=== PATIENT | female | born 1955 | race Caucasian/White ===

== ENCOUNTER → 2024-06-23 11:38 | Outpatient (CLI) | payer MEDICARE, SELFPAY ==
[2024-06-23 12:41] LABS: Add Manual Diff / Slide Review NO; Basophils Absolute Auto 100 /uL (0-100); Basophils Percent Auto 1.8 % (0-2); Eosinophils Absolute Auto 200 /uL (0-450); Hematocrit 34.4 % (36-46); Hemoglobin 11.2 g/dL (12.0-16.0); Lymphocytes Absolute Auto 1300 /uL (1100-4500); Lymphocytes Percent Auto 35.8 % (25-40); Mean Corpuscular HGB Conc 32.4 % (30-36); Mean Corpuscular Hemoglobin 27.3 PG (26-34); Mean Corpuscular Volume 84.1 fL (80-100); Monocytes Absolute Auto 300 /uL (0-900); Monocytes Percent Auto 6.8 % (3-14); Neutrophils Absolute Auto 1900 /uL (1500-7000); Neutrophils Percent Auto 49.6 % (50-75); Platelet Count 278 X10^3/uL (150-400); Red Blood Cell Count 4.09 X10^6/uL (4.0-5.2); Red Cell Distribution Width 16.6 % (11.6-14.8); White Blood Cell Count 3.8 X10^3/uL (4.5-11.0)
[2024-06-23 12:56] LABS: Alanine Aminotransferase 18 IU/L (<35); Albumin 4.3 g/dL (3.5-5.0); Albumin Globulin Ratio 1.5 (1.0-2.8); Alkaline Phosphatase 67 U/L (38-126); Aspartate Aminotransferase 27 IU/L (14-36); BUN Creatinine Ratio 14.6 (6-22); Blood Urea Nitrogen 12 mg/dL (7-17); Calcium 9.3 mg/dL (8.4-10.2); Carbon Dioxide 22 mmol/L (22-32); Chloride 107 mmol/L (98-107); Cholesterol 231 mg/dL (140-199); Estimated Glomerular Filt Rate > 60 mL/min (>60); Globulin 2.9 g/dL (1.7-4.1); Glucose 96 mg/dL (80-110); HEMOLYSIS < 15 (0-50); Potassium 4.2 mmol/L (3.4-5.1); Sodium 139 mmol/L (137-145); Total Protein 7.2 g/dL (6.3-8.2); Triglycerides 78 mg/dL (35-150)
[2024-06-23 13:31] LABS: TSH w/ Reflex to FT4 1.14 uIU/mL (0.47-4.68)
[2024-06-23 13:47] LABS: HDL Cholesterol 105 mg/dL (40-60); LDL Cholesterol Calculated 110 mg/dL (<100)
== END ==
PROVIDERS: PCP Family Medicine; Referring Provider Family Medicine; Visit Provider Family Medicine
DX: Z00.00 Encounter for general adult medical examination without abnormal findings (principal); I10 Essential (primary) hypertension; G47.00 Insomnia, unspecified
CPT/HCPCS: 36415; 80053; 80061; 84443; 85025

== ENCOUNTER → 2024-07-23 11:21 | Outpatient (CLI) | payer MEDICARE, SELFPAY ==
--- NOTE | 2024-07-23 11:22 | DI.MG.S_ITS ---
BILATERAL DIGITAL SCREENING MAMMOGRAM 3D/2D WITH CAD: 07/23/2024 CLINICAL: Routine screening. Family history of breast cancer. Comparison is made to exams dated: 12/21/2022 mammogram, 12/11/2019 mammogram, and 10/27/2018 mammogram - [facility]. There are scattered areas of fibroglandular density (category b / 25%-50% glandular tissue). Current study was also evaluated with a Computer Aided Detection (CAD) system. No significant masses, calcifications, or other findings are seen in either breast. There has been no significant interval change. IMPRESSION: NEGATIVE There is no mammographic evidence of malignancy. A 1 year screening mammogram is recommended. Based on the Tyrer Cuzick model (a risk assessment model) the patient's lifetime risk is 7.6% and her 10 year risk is 3.8%. According to the ACR, ACS, and NCCN guidelines, an annual breast MRI exam along with mammogram is recommended if the patient's lifetime risk is 20% or greater. This exam was interpreted at Station ID: [id number]. NOTE: For mammograms, a report in lay terms will be sent to the patient. Approximately 15% of breast malignancies will not be visualized mammographically. In the management of a palpable breast mass, a negative mammogram must not discourage biopsy of a clinically suspicious lesion. Electronically Signed By: Luisa Lucio M.D., Ph.D. den/elizabet:07/24/2024 10:16:25 letter sent: Normal Exam ACR BI-RADS Category 1: Negative
== END ==
PROVIDERS: PCP Family Medicine; Referring Provider Family Medicine; Visit Provider Family Medicine
DX: Z12.31 Encounter for screening mammogram for malignant neoplasm of breast (principal); Z80.3 Family history of malignant neoplasm of breast
CPT/HCPCS: 77063; 77067

== ENCOUNTER → 2024-09-28 13:48 | Outpatient (CLI) | payer MEDICARE, SELFPAY ==
[2024-09-28 15:13] LABS: Adenovirus Not Detected (Not Detect); B. parapertussis Not Detected (Not Detecte); Bordetella pertussis Not Detected (Not Detect); Chlamydophila pneumoniae Not Detected (Not Detect); Coronavirus 229E Not Detected (Not Detect); Coronavirus HKU1 Not Detected (Not Detect); Coronavirus NL 63 Not Detected (Not Detect); Coronavirus OC43 Not Detected (Not Detect); Human Metapneumovirus Not Detected (Not Detect); Human Rhinovirus/Enterovirus Not Detected (Not Detect); Influenza A Not Detected (Not Detect); Influenza B Not Detected (Not Detect); Mycoplasma pneumoniae Not Detected (Not Detect); Parainfluenza Virus 1 Not Detected (Not Detect); Parainfluenza Virus 2 Not Detected (Not Detect); Parainfluenza Virus 3 Not Detected (Not Detect); Parainfluenza Virus 4 Not Detected (Not Detect); Respiratory Syncytial Virus Not Detected (Not Detect); SARS- CoV-2 Not Detected (Not Detecte)
== END ==
PROVIDERS: PCP Family Medicine; Visit Provider Nurse Practitioner Family
DX: R05.1 Acute cough (principal)
CPT/HCPCS: 87633

== ENCOUNTER → 2024-09-28 13:53 | Outpatient (CLI) | payer MEDICARE, SELFPAY ==
--- NOTE | 2024-09-28 13:54 | DI.RAD.S_ITS ---
PROCEDURE: XR CHEST 2V INDICATIONS: Cough TECHNIQUE: 2 views of the chest were acquired. COMPARISON: None. FINDINGS: Surgical changes and devices: None. Lungs and pleura: Retrocardiac opacity, seen only on the lateral view. Mediastinum: Mediastinal contours are normal. Heart size is normal. Bones and chest wall: No suspicious bony abnormalities. Soft tissues appear unremarkable. IMPRESSION: Retrocardiac consolidation, concerning for pneumonia. Recommend follow-up in 1-2 months with chest x-ray to ensure resolution. Dictated by: Wicho Mcdowell M.D. on 09/28/2024 at 14:25 Approved by: Wicho Mcdowell M.D. on 09/28/2024 at 14:26
== END ==
PROVIDERS: PCP Family Medicine; Referring Provider Nurse Practitioner Family; Visit Provider Nurse Practitioner Family
DX: R05.1 Acute cough (principal)
CPT/HCPCS: 71046; 87633

== ENCOUNTER 2024-10-20 15:21 | Observation (INO) | payer MEDICARE, SELFPAY ==
[2024-10-20] VITALS (11 sets, daily range): BP systolic 125–187; BP diastolic 73–103; PULSE 92–107; RESP 16–22; TEMP 36.4; O2SAT 94–97; BMI 34.3
--- NOTE | 2024-10-20 15:30 | EKG_ITS ---
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
--- NOTE | 2024-10-20 15:30 | DI.RAD.S_ITS ---
PROCEDURE: XR CHEST 2V INDICATIONS: shortness of breath/cough TECHNIQUE: 2 views of the chest were acquired. COMPARISON: [facility], , XR CHEST 2V, 09/28/2024, 13:50. FINDINGS: Surgical changes and devices: None. Lungs and pleura: Multifocal pulmonary opacities are seen including in the right upper lobe and left lower lobe suspicious for bilateral pneumonia. No pleural effusion or pneumothorax. Mediastinum: Mediastinal contours are normal. Heart size is normal. Bones and chest wall: No suspicious bony abnormalities. Soft tissues appear unremarkable. IMPRESSION: Bilateral consolidations are suspicious for pneumonia. Left basilar consolidation has increased when compared to the exam from 09/28/2024 and right upper lobe consolidation is new. Approved by: Dewayne Long M.D. on 10/20/2024 at 16:01
[2024-10-20 15:58] LABS: Add Manual Diff / Slide Review NO; Basophils Absolute Auto 100 /uL (0-100); Basophils Percent Auto 1.1 % (0-2); Eosinophils Absolute Auto 400 /uL (0-450); Eosinophils Percent Auto 4.1 % (2-4); Hematocrit 33.6 % (36-46); Hemoglobin 10.6 g/dL (12.0-16.0); Lymphocytes Absolute Auto 900 /uL (1100-4500); Lymphocytes Percent Auto 10.9 % (25-40); Mean Corpuscular HGB Conc 31.6 % (30-36); Mean Corpuscular Hemoglobin 26.5 PG (26-34); Mean Corpuscular Volume 83.7 fL (80-100); Monocytes Absolute Auto 500 /uL (0-900); Monocytes Percent Auto 5.5 % (3-14); Neutrophils Absolute Auto 6700 /uL (1500-7000); Neutrophils Percent Auto 78.4 % (50-75); Platelet Count 586 X10^3/uL (150-400); Red Blood Cell Count 4.02 X10^6/uL (4.0-5.2); Red Cell Distribution Width 16.6 % (11.6-14.8); White Blood Cell Count 8.6 X10^3/uL (4.5-11.0)
[2024-10-20 16:11] LABS: HEMOLYSIS < 15 (0-50)
[2024-10-20 16:12] LABS: INR 1.2 (0.9-1.3); Prothrombin Time 13.1 SECONDS (9.4-12.5)
[2024-10-20 16:14] LABS: Lactate (Lactic Acid) 1.2 mmol/L (0.7-2.1)
[2024-10-20 16:15] LABS: Alanine Aminotransferase 24 IU/L (<35); Albumin 3.7 g/dL (3.5-5.0); Albumin Globulin Ratio 1.1 (1.0-2.8); Alkaline Phosphatase 95 U/L (38-126); Aspartate Aminotransferase 27 IU/L (14-36); Bilirubin Total 0.4 mg/dL (0.2-1.3); Blood Urea Nitrogen 12 mg/dL (7-17); Calcium 8.9 mg/dL (8.4-10.2); Carbon Dioxide 20 mmol/L (22-32); Chloride 107 mmol/L (98-107); Estimated Glomerular Filt Rate > 60 mL/min (>60); Globulin 3.4 g/dL (1.7-4.1); Glucose 107 mg/dL (80-110); Potassium 4.1 mmol/L (3.4-5.1); Sodium 137 mmol/L (137-145); Total Protein 7.1 g/dL (6.3-8.2)
[2024-10-20 16:27] LABS: Troponin I < 0.012 ng/mL (0.01-0.034)
[2024-10-20 17:45] LABS: NT-proBNP (BNP-Adult 18+) 186 pg/mL (<125)
--- NOTE | 2024-10-20 18:02 | ED.SOB ---
HPI - SOB/Dyspnea General Chief Complaint: Shortness of Breath/Dyspnea Stated Complaint: hx pneumonia. short of breath Time Seen by Provider: 10/20/24 17:57 Source: patient Mode of arrival: Ambulatory Limitations: no limitations History of Present Illness HPI Narrative: 68-year-old female with history of hypertension presents by private vehicle from home for shortness of breath. Patient has been under treatment for pneumonia since the 28 of September. She has been on Augmentin, azithromycin, and Keflex without improvement. Patient states that she feels rattling in her lungs when she lays down. Intermittent fevers at home. Related Data Home Medications Medication Instructions Recorded Confirmed atenolol 50 mg tablet 50 mg PO DAILY 06/23/24 10/20/24 Previous Rx's Medication Instructions Recorded trazodone 50 mg tablet 50 mg PO BEDTIME #90 tabs 06/23/24 valacyclovir 500 mg tablet 500 mg PO BID PRN cold sore #20 09/22/24 tabs benzonatate 200 mg capsule 200 mg PO BID PRN cough #28 caps 09/28/24 albuterol sulfate 90 mcg/actuation 2 puff inhalation Q6H PRN 10/14/24 aerosol inhaler shortness of breath or wheezing #6.7 grams Allergies Allergy/AdvReac Type Severity Reaction Status Date / Time No Known Drug Allergies Allergy Unverified 09/28/24 13:32 Patient History Medical History Pneumonia Anemia Retinal vein occlusion of right eye Sleep apnea (~2018) Mumps Measles Chicken pox History of colon polyps Preventative health care Insomnia Hypertension Surgical History Anesthesia History of surgical removal of pilonidal cyst (~1977) Family History Father History of heart disease Mother Diabetes mellitus Dementia Mental health problem Brother Vascular dementia Alzheimer's disease Hypertension Mental health problem Sister Mental health problem Anxiety Grandfather Cancer Grandmother Dementia Grandfather History of heart disease Grandmother Breast cancer Social History household members: spouse Smoking Status: Never smoker Smoking Status: Never smoker Exam Initial Vital Signs Initial Vital Signs: Vital Signs Temperature 97.5 F L 10/20/24 15:24 Pulse Rate 94 H 10/20/24 15:24 Respiratory Rate 20 10/20/24 15:24 Blood Pressure 187/103 H 10/20/24 15:24 Pulse Oximetry 94 10/20/24 15:24 Oxygen Delivery Method Room Air 10/20/24 15:24 Const: Awake, alert, no acute distress, nontoxic appearing Cardiac: regular rate, regular rhythm RESP: bibasilar crackles GI: Soft, nontender, nondistended Skin: Warm, Dry, intact, no rashes Neuro: AO x3, CN II-XII grossly intact, moves all extremities Course Orders Ordered: ED Orders 10/20/24 19:04 CT chest w con Stat Acetaminophen (Acetaminophen 325 Mg Tablet) 650 mg PO Q6H PRN PRN Reason: Fever/Mild Pain (1-3) Albuterol (Albuterol 2.5 Mg/3 Ml Neb (Adult)) 2.5 mg INH [id number] PRN PRN Reason: Shortness Of Breath Benzonatate (Benzonatate 100 Mg Capsule) 200 mg PO TID PRN PRN Reason: cough Enoxaparin Sodium (Enoxaparin 40 Mg/0.4 Ml Syringe) 40 mg SUBCUT DAILY SOCORRO Ceftriaxone Sodium 1,000 mg/ (Sodium Chloride) 100 mls @ 200 mls/hr IV Q24H SOC[place]RO Azithromycin 500 mg/ Dextrose 250 mls @ 250 mls/hr IV Q24H SOCORRO Naloxone HCl (Naloxone 0.4 Mg/Ml Vial) 0.2 mg IV Q2MIN PRN PRN Reason: Opiate Reversal Sennosides (Sennosides 8.6 Mg Tablet) 17.2 mg PO BEDTIME PRN PRN Reason: constipation Trazodone HCl (Trazodone 50 Mg Tablet) 50 mg PO BEDTIME PRN PRN Reason: insomnia Discontinued Medications Ceftriaxone Sodium 2,000 mg/ (Sodium Chloride) 100 mls @ 200 mls/hr IV NOW ONE Stop: 10/20/24 19:13 Last Infusion: 10/20/24 20:10 Dose: Infused Documented By: Admin: 10/20/24 19:36 Dose: 200 mls/hr Documented By: Azithromycin 500 mg/ Dextrose 250 mls @ 250 mls/hr IV NOW ONE Stop: 10/20/24 19:13 Last Infusion: 10/20/24 21:47 Dose: Infused Documented By: Admin: 10/20/24 20:17 Dose: 250 mls/hr Documented By: AB Vital Signs Vital signs: Vital Signs - 8 hr 10/20/24 19:00 10/20/24 19:00 10/20/24 19:35 Pulse Rate 99 H 105 H Respiratory Rate 22 Blood Pressure 148/84 H Pulse Oximetry 96 10/20/24 19:36 10/20/24 19:36 10/20/24 20:00 Pulse Rate 99 H Respiratory Rate 16 Blood Pressure 147/84 H 147/84 H Pulse Oximetry 96 10/20/24 20:00 10/20/24 20:30 10/20/24 20:30 Pulse Rate 92 H 93 H Respiratory Rate 17 20 Blood Pressure 134/86 Pulse Oximetry 96 96 MDM - SOB/Dyspnea Lab Data 10/20/24 15:47 10/20/24 15:47 Labs: Lab Results 10/20/24 Range/Units 15:47 WBC 8.6 (4.5-11.0) X10^3/uL RBC 4.02 (4.0-5.2) X10^6/uL Hgb 10.6 L (12.0-16.0) g/dL Hct 33.6 L (36-46) % MCV 83.7 (80-100) fL MCH 26.5 (26-34) PG MCHC 31.6 (30-36) % RDW 16.6 H (11.6-14.8) % Plt Count 586 H (150-400) X10^3/uL Neut % (Auto) 78.4 H (50-75) % Lymph % (Auto) 10.9 L (25-40) % [place] % (Auto) 5.5 (3-14) % Eos % (Auto) 4.1 H (2-4) % Baso % (Auto) 1.1 (0-2) % Neut # (Auto) 6700 (8259-0288) /uL Lymph # (Auto) 900 L (6136-4887) /uL [place] # (Auto) 500 (0-900) /uL Eos # (Auto) 400 (0-450) /uL Baso # (Auto) 100 (0-100) /uL PT 13.1 H (9.4-12.5) SECONDS INR 1.2 (0.9-1.3) Sodium 137 (137-145) mmol/L Potassium 4.1 (3.4-5.1) mmol/L Chloride 107 (98-107) mmol/L Carbon Dioxide 20 L (22-32) mmol/L BUN 12 (7-17) mg/dL Creatinine 0.80 (0.52-1.04) mg/dL Estimated GFR > 60 (>60) mL/min BUN/Creatinine Ratio 15.0 (6-22) Glucose 107 (80-110) mg/dL Lactate 1.2 (0.7-2.1) mmol/L Calcium 8.9 (8.4-10.2) mg/dL Total Bilirubin 0.4 (0.2-1.3) mg/dL AST 27 (14-36) IU/L ALT 24 (<35) IU/L Alkaline Phosphatase 95 (38-126) U/L Troponin I < 0.012 (0.01-0.034) ng/mL NT-Pro-B Natriuret Pep 186 H (<125) pg/mL Total Protein 7.1 (6.3-8.2) g/dL Albumin 3.7 (3.5-5.0) g/dL Globulin 3.4 (1.7-4.1) g/dL Albumin/Globulin Ratio 1.1 (1.0-2.8) Imaging Data CT scan - chest: Radiologist's Impression: PROCEDURE: CT CHEST W CON INDICATIONS: persistent PNAx weeks TECHNIQUE: After the administration of intravenous contrast, 5 mm thick sections acquired from the pulmonary apices to the posterior costophrenic angles. 1 mm axial lung, 5 mm thick coronal and sagittal reformats and 7 mm axial MIP were acquired. For radiation dose reduction, the following was used: automated exposure control, adjustment of mA and/or kV according to patient size. COMPARISON: [facility], CR, XR CHEST 2V, 09/28/2024, 13:50. [facility], CR, XR CHEST 2V, 10/20/2024, 15:47. FINDINGS: Image quality: Diagnostic. Lower Neck: No enlarged lymph nodes. Thyroid: No thyroid nodules which require sonographic follow up, per consensus guidelines. Axillae: No enlarged lymph nodes. Chest Wall: Unremarkable. Bones: Age-appropriate bony degenerative changes are seen. Lungs and Pleura: Multifocal infiltrates can be seen, which are worst involving the lower lobes, as well as the inferolateral right upper lobe. However, all 5 lobes of the lung can be seen. Air bronchograms can be seen within the larger of the consolidations. No pneumothorax or pleural effusions are seen. The central airways are patent. Heart: Heart size is normal. No pericardial effusion. Thoracic Vessels: The aorta and pulmonary arteries demonstrate normal size. Mediastinum and Ngozi: No enlarged lymph nodes. Esophagus: No wall thickening. No hiatal hernia. Upper Abdomen: Diffuse fatty liver infiltration is noted. The visualized portions of the upper abdominal structures are otherwise unremarkable for imaging technique. IMPRESSION: Multifocal pneumonia. This process is worst involving both lower lobes dependently, although involvement of all 5 lobes of the lung can be seen. There is also significant involvement within the inferolateral right upper lobe. Follow-up is recommended to resolution, beginning with a noncontrast chest CT in 8-12 weeks. Additional findings: Fatty liver infiltration Dictated by: Doug Madera M.D. on 10/20/2024 at 18:55 Approved by: Doug Madera M.D. on 10/20/2024 at 18:58 ECG Data Attestation: I personally reviewed and interpreted this ECG as follows: Prior ECG tracings: not available for review Interpretation: NSR at 86bpm. Normal [place]. No ST-T wave changes MDM Narrative Medical decision making narrative: Pneumonia not responding to outpatient antibiotic treatment. She has finish 3 rounds of antibiotics without clinical improvement. Chest x-ray shows worsening infiltrates. Saturating well on room air. Due to persistent pneumonia a CT of the chest was ordered, that showed multifocal pneumonia in all lung lobes. IV ceftriaxone and azithromycin ordered. Plan to admit for additional IV antibiotics and further treatment. Discharge Plan Departure Patient Disposition: Admitted as Observation Clinical Impression: Pneumonia, Failure of outpatient treatment Admit Date/Time: 10/20/24 20:42 Admit Provider: Cachorro Reyes
--- NOTE | 2024-10-20 19:04 | DI.CT.S_ITS ---
PROCEDURE: CT CHEST W CON INDICATIONS: persistent PNAx weeks TECHNIQUE: After the administration of intravenous contrast, 5 mm thick sections acquired from the pulmonary apices to the posterior costophrenic angles. 1 mm axial lung, 5 mm thick coronal and sagittal reformats and 7 mm axial MIP were acquired. For radiation dose reduction, the following was used: automated exposure control, adjustment of mA and/or kV according to patient size. COMPARISON: [facility], CR, XR CHEST 2V, 09/28/2024, 13:50. [facility], CR, XR CHEST 2V, 10/20/2024, 15:47. FINDINGS: Image quality: Diagnostic. Lower Neck: No enlarged lymph nodes. Thyroid: No thyroid nodules which require sonographic follow up, per consensus guidelines. Axillae: No enlarged lymph nodes. Chest Wall: Unremarkable. Bones: Age-appropriate bony degenerative changes are seen. Lungs and Pleura: Multifocal infiltrates can be seen, which are worst involving the lower lobes, as well as the inferolateral right upper lobe. However, all 5 lobes of the lung can be seen. Air bronchograms can be seen within the larger of the consolidations. No pneumothorax or pleural effusions are seen. The central airways are patent. Heart: Heart size is normal. No pericardial effusion. Thoracic Vessels: The aorta and pulmonary arteries demonstrate normal size. Mediastinum and Ngozi: No enlarged lymph nodes. Esophagus: No wall thickening. No hiatal hernia. Upper Abdomen: Diffuse fatty liver infiltration is noted. The visualized portions of the upper abdominal structures are otherwise unremarkable for imaging technique. IMPRESSION: Multifocal pneumonia. This process is worst involving both lower lobes dependently, although involvement of all 5 lobes of the lung can be seen. There is also significant involvement within the inferolateral right upper lobe. Follow-up is recommended to resolution, beginning with a noncontrast chest CT in 8-12 weeks. Additional findings: Fatty liver infiltration Dictated by: Doug Madera M.D. on 10/20/2024 at 18:55 Approved by: Doug Madera M.D. on 10/20/2024 at 18:58
[2024-10-20] MEDS: cefTRIAXone 2,000 MG in SODIUM CHLORIDE 0.9% 100 ML 200 MG IV (19:36)
[2024-10-20] MEDS: AZITHROMYCIN 500 MG in DEXTROSE 5% IN WATER 250 ML 250 MG IV (20:17)
--- NOTE | 2024-10-21 02:54 | PM.HP.1 ---
History of Present Illness History of Present Illness Date Patient Seen: 10/20/24 Time Patient Seen: 23:00 Chief complaint: hx pneumonia. short of breath Narrative: 68 y/o with PMH of HTN, presented short of breath, with non-productive cough, after she failed 3 different antibiotics in as many last weeks, Keflex, Zithromax and Augmentin. Workup showing multifocal pneumonia. Not septic or hypoxemic. Started on Rocephin and Zithromax in the ED and admitted for IV tx of pneumonia after she failed multiple outpatient antibiotics. [facility] Medical History Pneumonia Anemia Retinal vein occlusion of right eye Sleep apnea (~2018) Mumps Measles Chicken pox History of colon polyps Preventative health care Insomnia Hypertension Surgical History Anesthesia History of surgical removal of pilonidal cyst (~1977) Family History Father History of heart disease Mother Diabetes mellitus Dementia Mental health problem Brother Vascular dementia Alzheimer's disease Hypertension Mental health problem Sister Mental health problem Anxiety Grandfather Cancer Grandmother Dementia Grandfather History of heart disease Grandmother Breast cancer Social History household members: spouse Smoking Status: Never smoker Meds Home Medications and Allergies Home Medications Medication Instructions Recorded Confirmed Type atenolol 50 mg tablet 50 mg PO DAILY 06/23/24 10/20/24 History trazodone 50 mg tablet 50 mg PO BEDTIME #90 tabs 06/23/24 10/20/24 Rx valacyclovir 500 mg tablet 500 mg PO BID PRN cold sore #20 09/22/24 10/20/24 Rx tabs benzonatate 200 mg capsule 200 mg PO BID PRN cough #28 caps 09/28/24 10/20/24 Rx albuterol sulfate 90 mcg/actuation 2 puff inhalation Q6H PRN 10/14/24 10/20/24 Rx aerosol inhaler shortness of breath or wheezing #6.7 grams Allergies Allergy/AdvReac Type Severity Reaction Status Date / Time No Known Drug Allergies Allergy Unverified 09/28/24 13:32 Review of Systems Constitutional Comments: she had episodic fever generalized weakness Cardiovascular Comments: w/o chest pain Respiratory Comments: short of breath, dry cough, used to be productive Musculoskeletal Comments: w/o myalgia Exam Vital Signs (past 8 hours): - 10/20/24 19:00 10/20/24 19:00 10/20/24 19:35 Pulse Rate 99 H 105 H Respiratory Rate 22 Blood Pressure 148/84 H Pulse Oximetry 96 Oxygen Delivery Method 10/20/24 19:36 10/20/24 19:36 10/20/24 20:00 Pulse Rate 99 H Respiratory Rate 16 Blood Pressure 147/84 H 147/84 H Pulse Oximetry 96 Oxygen Delivery Method 10/20/24 20:00 10/20/24 20:30 10/20/24 20:30 Pulse Rate 92 H 93 H Respiratory Rate 17 20 Blood Pressure 134/86 Pulse Oximetry 96 96 Oxygen Delivery Method 10/20/24 21:00 10/20/24 21:00 10/20/24 22:30 Pulse Rate 98 H Respiratory Rate 19 Blood Pressure 125/84 Pulse Oximetry 97 Oxygen Delivery Method Room Air Room Air Oxygen Delivery Method Room Air Const Other: in no distress HENMT Other: normocephalic Resp Other: crackles over bases Cardio Other: RRR Skin Other: w/o rashes Extrem Other: w/o swelling Psych Other: lucid Objective ECG Impression: NSR 86 Labs 10/21/24 05:20 10/20/24 15:47 Labs: Laboratory Results - last 24 hr 10/20/24 15:47 WBC 8.6 RBC 4.02 Hgb 10.6 L Hct 33.6 L MCV 83.7 MCH 26.5 MCHC 31.6 RDW 16.6 H Plt Count 586 H Neut % (Auto) 78.4 H Lymph % (Auto) 10.9 L [place] % (Auto) 5.5 Eos % (Auto) 4.1 H Baso % (Auto) 1.1 Neut # (Auto) 6700 Lymph # (Auto) 900 L [place] # (Auto) 500 Eos # (Auto) 400 Baso # (Auto) 100 PT 13.1 H INR 1.2 Sodium 137 Potassium 4.1 Chloride 107 Carbon Dioxide 20 L BUN 12 Creatinine 0.80 Estimated GFR > 60 BUN/Creatinine Ratio 15.0 Glucose 107 Lactate 1.2 Calcium 8.9 Total Bilirubin 0.4 AST 27 ALT 24 Alkaline Phosphatase 95 Troponin I < 0.012 NT-Pro-B Natriuret Pep 186 H Total Protein 7.1 Albumin 3.7 Globulin 3.4 Albumin/Globulin Ratio 1.1 Assessment & Plan Assessment and plan (1) Pneumonia: Qualifiers: Pneumonia type: due to unspecified organism Laterality: bilateral Lung location: unspecified part of lung Qualified Code(s): J18.9 - Pneumonia, unspecified organism Status: Acute (2) Hypertension: Qualifiers: Hypertension type: primary hypertension Qualified Code(s): I10 - Essential (primary) hypertension Status: Acute (3) Insomnia: Qualifiers: Insomnia type: primary Qualified Code(s): F51.01 - Primary insomnia Status: Acute (4) Anemia: Qualifiers: Anemia type: other cause Other causes of anemia: other cause, not classified Qualified Code(s): D64.89 - Other specified anemias Status: Acute Assessment & Plan narrative: Pneumonia - multifocal, failed multiple abx - Rocephin, Zithromax - Tessalon HTN - uncontrolled - home atenolol 50 mg daily increased to bid Insomnia - Trazodone Anemia - mild and stable, followed by PCP DVT prophylaxis - Lovenox Time-Based Coding :: [TOTAL MINUTES] spent with patient and on the chart (including review of chart, obtaining history, exam, reviewing outside data, placing orders, documenting exam and treatment plan, and counseling patient) on [DATE].
[2024-10-21 04:00] VITALS: BP 138/86; PULSE 100; RESP 18; TEMP 36.7; O2SAT 95
[2024-10-21 05:40] LABS: Add Manual Diff / Slide Review NO; Basophils Absolute Auto 100 /uL (0-100); Eosinophils Absolute Auto 400 /uL (0-450); Eosinophils Percent Auto 4.7 % (2-4); Hematocrit 30.6 % (36-46); Lymphocytes Absolute Auto 1000 /uL (1100-4500); Mean Corpuscular HGB Conc 32.6 % (30-36); Mean Corpuscular Hemoglobin 26.8 PG (26-34); Mean Corpuscular Volume 82.2 fL (80-100); Monocytes Absolute Auto 500 /uL (0-900); Monocytes Percent Auto 6.4 % (3-14); Neutrophils Absolute Auto 5500 /uL (1500-7000); Neutrophils Percent Auto 73.9 % (50-75); Platelet Count 526 X10^3/uL (150-400); Red Blood Cell Count 3.73 X10^6/uL (4.0-5.2); Red Cell Distribution Width 16.7 % (11.6-14.8); White Blood Cell Count 7.5 X10^3/uL (4.5-11.0)
[2024-10-21 06:07] LABS: BUN Creatinine Ratio 17.6 (6-22); Blood Urea Nitrogen 12 mg/dL (7-17); Calcium 8.6 mg/dL (8.4-10.2); Carbon Dioxide 23 mmol/L (22-32); Chloride 106 mmol/L (98-107); Estimated Glomerular Filt Rate > 60 mL/min (>60); Glucose 110 mg/dL (80-110); HEMOLYSIS < 15 (0-50); Potassium 4.1 mmol/L (3.4-5.1); Sodium 133 mmol/L (137-145)
[2024-10-21 08:00] VITALS: BP 128/79; PULSE 94; RESP 15; TEMP 36.8; O2SAT 93
[2024-10-21] MEDS: atenoloL 50 MG TABLET PO ×2 (09:10→20:08)
[2024-10-21] MEDS: ENOXAPARIN 40 MG/0.4 ML SYRINGE SUBCUT (09:10)
--- NOTE | 2024-10-21 12:48 | P.PN_ITS ---
Subjective Subjective Date Patient Seen: 10/21/24 Time Patient Seen: 08:45 Interval history: Chief complaint: hx pneumonia. short of breath Narrative: 68 y/o with PMH of HTN, presented short of breath, with non-productive cough, after she failed 3 different antibiotics in as many last weeks, Keflex, Zithromax and Augmentin. Workup showing multifocal pneumonia. Not septic or hypoxemic. Started on Rocephin and Zithromax in the ED and admitted for IV tx of pneumonia after she failed multiple outpatient antibiotics. Interval history: She reports feeling better this morning, though still weak and with persistent cough. Exam Vital Signs (past 8 hours): - 10/21/24 07:00 10/21/24 08:00 Temperature 98.2 F Pulse Rate 94 H Respiratory Rate 15 Blood Pressure 128/79 Pulse Oximetry 93 Oxygen Delivery Method Room Air Oxygen Flow Rate 0 Oxygen Delivery Method Room Air Oxygen Flow Rate 0 Narrative Exam Narrative: GENERAL: This is a well-nourished, well-developed patient, in no apparent distress. EYES: Pupils equal round and reactive. Extraocular motions intact. No scleral icterus. No injection or drainage. ENT: Mucous membranes pink and moist. NECK: Supple, nontender, no meningeal signs. CARDIOVASCULAR: Regular rate and rhythm without murmurs, gallops, or rubs. RESPIRATORY: Bilateral lower lobe crackes. No wheezing or rhonchi. GASTROINTESTINAL: Abdomen soft, non-tender, nondistended. EXTREMITIES: No clubbing, cyanosis, or edema. NEUROLOGIC: Alert, oriented, speech fluent, full upper and lower motor strength, no focal deficits evident. DERMATOLOGIC: No rashes or skin lesions. Objective Imaging Chest x-ray: Radiologist's impression: Bilateral consolidations are suspicious for pneumonia. Left basilar consolidation has increased when compared to the exam from 09/28/2024 and right upper lobe consolidation is new. CT scan - chest: Radiologist's impression: Multifocal pneumonia. This process is worst involving both lower lobes dependently, although involvement of all 5 lobes of the lung can be seen. There is also significant involvement within the inferolateral right upper lobe. Follow-up is recommended to resolution, beginning with a noncontrast chest CT in 8-12 weeks. Additional findings: Fatty liver infiltration Labs 10/21/24 05:20 10/21/24 05:20 Labs: Laboratory Results - last 24 hr 10/20/24 10/21/24 15:47 05:20 WBC 8.6 7.5 RBC 4.02 3.73 L Hgb 10.6 L 10.0 L Hct 33.6 L 30.6 L MCV 83.7 82.2 MCH 26.5 26.8 MCHC 31.6 32.6 RDW 16.6 H 16.7 H Plt Count 586 H 526 H Neut % (Auto) 78.4 H 73.9 Lymph % (Auto) 10.9 L 14.0 L [place] % (Auto) 5.5 6.4 Eos % (Auto) 4.1 H 4.7 H Baso % (Auto) 1.1 1.0 Neut # (Auto) 6700 5500 Lymph # (Auto) 900 L 1000 L [place] # (Auto) 500 500 Eos # (Auto) 400 400 Baso # (Auto) 100 100 PT 13.1 H INR 1.2 Sodium 137 133 L Potassium 4.1 4.1 Chloride 107 106 Carbon Dioxide 20 L 23 BUN 12 12 Creatinine 0.80 0.68 Estimated GFR > 60 > 60 BUN/Creatinine Ratio 15.0 17.6 Glucose 107 110 Lactate 1.2 Calcium 8.9 8.6 Total Bilirubin 0.4 AST 27 ALT 24 Alkaline Phosphatase 95 Troponin I < 0.012 NT-Pro-B Natriuret Pep 186 H Total Protein 7.1 Albumin 3.7 Globulin 3.4 Albumin/Globulin Ratio 1.1 PFSH Medical History Pneumonia Anemia Retinal vein occlusion of right eye Sleep apnea (~2018) Mumps Measles Chicken pox History of colon polyps Preventative health care Insomnia Hypertension Surgical History Anesthesia History of surgical removal of pilonidal cyst (~1977) Family History Father History of heart disease Mother Diabetes mellitus Dementia Mental health problem Brother Vascular dementia Alzheimer's disease Hypertension Mental health problem Sister Mental health problem Anxiety Grandfather Cancer Grandmother Dementia Grandfather History of heart disease Grandmother Breast cancer Social History household members: spouse Smoking Status: Never smoker Assessment & Plan Assessment & Plan narrative: Pneumonia - multifocal, failed multiple abx - Rocephin, Zithromax - Tessalon HTN - uncontrolled on admit and improved this morning - home atenolol 50 mg daily increased to bid Insomnia - Trazodone Anemia - mild and stable, followed by PCP DVT prophylaxis - Lovenox AIMEE: 10/22 if continuing to do well, consider FQ I[facility] PROFEE Charge codes Subsequent inpatient/observation care: [id number]
[2024-10-21 14:00] VITALS: BP 112/71; PULSE 84; RESP 14; TEMP 36.3; O2SAT 95
--- NOTE | 2024-10-21 14:22 | CM.DANOTE ---
Initial DCP Assessment Note Pt is a 68 yo female, resident of [place], arrives with SOB, admitted for management of PNA, uses a CPAP at night. PCP: Bandar Domínguez Payer: Neyda MEJIA Reviewed chart, pt discussed in multidisciplinary rounds this morning. AIMEE 10/22. Met w/patient to review discharge plan. Patient lives independently with spouse, denies needs from this CM team. No barriers identified at this time to patient's safe discharge home w/family to assist; close outpatient f/u recommended. CM team will plan to follow clinical course closely in case any DC needs or concerns arise. DEENA Pruett Discharge Planning/Care Management CM Discharge Assessment Start: 10/21/24 14:21 Freq: Status: Active Protocol: Document 10/21/24 14:21 ETHAN (Rec: 10/21/24 14:22 ETHAN [id number]) Discharge Planning Assessment Assigned Axle Turner DEENA Barcenas DPOA/Assigned Designee Name Jaren Lantigua, spouse Contact Information [phone] Advance Directives? Yes Advance Directives on File No History Provided By Patient,Medical Record Prior Living Arrangements House Household Members spouse Type of transporation used prior to Drives own vehicle admit Independent with ADL's Yes Is patient alert and oriented? Yes Needs Assistance With Home Chores / Shopping Barriers to Discharge No Discharge Plan Home Transportation Arrangement Family Referrals Initiated None needed
[2024-10-21 20:00] VITALS: BP 135/87; PULSE 88; RESP 19; TEMP 36.6; O2SAT 94
[2024-10-21] MEDS: cefTRIAXone 1,000 MG in SODIUM CHLORIDE 0.9% 100 ML 200 MG IV (20:08)
[2024-10-21] MEDS: AZITHROMYCIN 500 MG in DEXTROSE 5% IN WATER 250 ML 250 MG IV (21:04)
[2024-10-22 02:00] VITALS: BP 121/80; PULSE 77; RESP 17; TEMP 36.4; O2SAT 93
[2024-10-22] MEDS: atenoloL 50 MG TABLET PO (08:41)
[2024-10-22] MEDS: ENOXAPARIN 40 MG/0.4 ML SYRINGE SUBCUT (08:41)
[2024-10-22 08:44] VITALS: BP 116/77; PULSE 84; RESP 16; TEMP 36.3; O2SAT 91
--- NOTE | 2024-10-22 09:39 | P.DS_ITS ---
History of Present Illness History of Present Illness Chief complaint: hx pneumonia short of breath Narrative: From H&P: 68 y/o female with PMH of HTN, presented short of breath, with non-productive cough, after she failed 3 different antibiotics in as many last weeks, Keflex, Zithromax and Augmentin. Workup showing multifocal pneumonia. Not septic or hypoxemic. Started on Rocephin and Zithromax in the ED and admitted for IV tx of pneumonia after she failed multiple outpatient antibiotics. Discharge Providers Provider Date of admission: 10/20/24 20:42 Discharge Date: 10/22/24 Primary care physician: Bandar Domínguez DO Consults: None. Discharge provider: Kobi Rivas MD Summary Hospital Course Discharge Diagnosis: 1. Multifocal pneumonia present on admission and improved. - multifocal, failed multiple abx - Rocephin, Zithromax - Tessalon 2. Hypertension, present on admission and improved. - uncontrolled on admit and improved this morning 3. Insomnia, stable. - Trazodone 4. Anemia, stable. - mild and stable, followed by PCP 5. Component of reactive airways was noted as well, present on admission and active. Hospital Course: She was admitted and treated with empiric antibiotics, specifically Rocephin and azithromycin. She did improve and was stable without oxygen on the day of discharge. She did have a cough which is induced with forced expiration consistent with reactive airways and bronchospasm. She was no history of asthma. She was comfortable returning home with an additional 5 days of fluoroquinolone and close follow up with her PCP. Her blood pressures were initially elevated and then better controlled prior to discharge. Status at Discharge Cognitive/behavioral status at discharge: oriented Functional status at discharge: independent ambulation Overall status at discharge: patient is back to baseline Time Spent with Patient Time spent: Greater than 30 minutes Exam Vital Signs (past 8 hours): - 10/22/24 02:00 10/22/24 08:44 Temperature 97.6 F 97.3 F L Pulse Rate 77 84 Respiratory Rate 17 16 Blood Pressure 121/80 116/77 Pulse Oximetry 93 91 Oxygen Flow Rate 0 Oxygen Delivery Method Room Air Oxygen Flow Rate 0 Narrative Exam Narrative: NAD, alert and oriented. Fluent speech. Lungs are clear, normal rate and effort. Heart is regular, no murmur gallop or rub. Abdomen is soft, non distended. Extremities are free of edema. Objective ECG Impression: Normal sinus rhythm Imaging Multiple studies:: Radiologist's impression: Chest x-ray: Bilateral consolidations are suspicious for pneumonia. Left basilar consolidation has increased when compared to the exam from 09/28/2024 and right upper lobe consolidation is new. Chest CT: Multifocal pneumonia. This process is worst involving both lower lobes dependently, although involvement of all 5 lobes of the lung can be seen. There is also significant involvement within the inferolateral right upper lobe. Follow-up is recommended to resolution, beginning with a noncontrast chest CT in 8-12 weeks. Additional findings: Fatty liver infiltration Labs 10/21/24 05:20 10/21/24 05:20 [facility] Medical History Pneumonia Anemia Retinal vein occlusion of right eye Sleep apnea (~2018) Mumps Measles Chicken pox History of colon polyps Preventative health care Insomnia Hypertension Surgical History Anesthesia History of surgical removal of pilonidal cyst (~1977) Family History Father History of heart disease Mother Diabetes mellitus Dementia Mental health problem Brother Vascular dementia Alzheimer's disease Hypertension Mental health problem Sister Mental health problem Anxiety Grandfather Cancer Grandmother Dementia Grandfather History of heart disease Grandmother Breast cancer Social History household members: spouse Smoking Status: Never smoker Discharge Assessment & Plan Assessment and Plan Assessment: 1. Multifocal pneumonia present on admission and improved. - multifocal, failed multiple abx - Rocephin, Zithromax - Tessalon Plan of Treatment: Continue 5 additional days of levofloxacin, close follow up with PCP. Consider follow up chest x-ray in this case given her pronounced multifocal pneumonia. She may benefit from outpatient pulmonary consultation if her x-ray fails to normalize. Discharge Plan Discharge Plan Patient Disposition: Home Provider Discharge Comment: Stable for discharge home with levofloxacin daily for 5 days and albuterol MDI for reactive airways. Discharge orders & Medications Prescriptions: New levofloxacin 500 mg tablet 500 mg PO DAILY Qty: 5 0RF Continued benzonatate 200 mg capsule 200 mg PO BID PRN (Reason: cough) Qty: 28 0RF valacyclovir 500 mg tablet 500 mg PO BID PRN (Reason: cold sore) Qty: 20 1RF Rx Instructions: only take twice a day for one day for cold sore atenolol 50 mg tablet 50 mg PO DAILY trazodone 50 mg tablet 50 mg PO BEDTIME Qty: 90 3RF albuterol sulfate 90 mcg/actuation HFA aerosol inhaler 2 puff inhalation Q6H PRN (Reason: shortness of breath or wheezing) Qty: 6.7 1RF Follow up/Referrals: Bandar Domínguez, [Primary Care Provider] - Discharge Health Status Multidrug resistant organism: No MDRO Diet/Activity/Treatments Diet: Regular Visit Report/Discharge Packet Instructions: DI for Pneumonia -- Adult Stand Alone Forms: Patient Portal/API Discharge Data Primary Care Provider: Bandar Domínguez
[2024-10-22] MEDS: cefTRIAXone 1,000 MG in SODIUM CHLORIDE 0.9% 100 ML 200 MG IV (09:59)
--- NOTE | 2024-10-22 11:07 | CM.DPNOTE ---
DCP note [employer]ESSIONAL reviewed EMR Per hospitalist in morning rounds, plan to dc today. Per RN, no obvious CM needs anticipated. BAT[employer]OOM T[employer]ING PROFESSIONAL alerted TCM team of pt's admission. P: No barriers identified at this time to patient's safe discharge home w/family to assist; close outpatient f/u recommended. CM team will plan to follow clinical course closely in case any DC needs or concerns arise. DEENA Orellana
--- NOTE | 2024-10-22 11:15 | PC.NURSE ---
D/c summary and instructions reviewed with pt. IV removed, and pt is dressed. Pt exited via w/c with [employer] ADDRESSER and spouse to private vehicle.
--- NOTE | 2024-11-13 07:25 | PC.NURSE ---
LATE ENTRY: Ceftriaxone started on 10/21/24 at 20:08 and completed at 20:38. Azithromycin started on 10/21/24 at 2104 and completed at 22:04
== END 2024-10-22 11:28 | disposition home or self-care (01) ==
LOC: ED 20:10 → AC 10-21 15:40
PROVIDERS: Emergency Medicine; Admitting Provider Internal Medicine; Emergency Provider Emergency Medicine; PCP Family Medicine; Referring Provider Emergency Medicine; Visit Provider Internal Medicine
DX: J18.9 Pneumonia, unspecified organism (principal); F51.01 Primary insomnia; D64.9 Anemia, unspecified; I10 Essential (primary) hypertension
CPT/HCPCS: 36415; 71046; 71260; 80048; 80053; 83605; 83880; 84484; 85025; 85610; 93005; 96365; 96366; 96367; 96372; 96376; 99284; G0378; J0696; J1650; Q9967

== ENCOUNTER → 2024-11-05 16:28 | Outpatient (CLI) | payer MEDICARE, SELFPAY ==
[2024-10-20 21:01] VITALS: BMI 34.3
--- NOTE | 2024-11-05 16:30 | DI.RAD.S_ITS ---
PROCEDURE: XR CHEST 2V INDICATIONS: f/u pneumonia TECHNIQUE: 2 views of the chest were acquired. COMPARISON: [facility], CR, XR CHEST 2V, 10/20/2024, 15:47. FINDINGS: Heart, mediastinum and pulmonary vascular: Normal Lungs: Large patchy infiltrates in both posterior lower lobes and the posterior segment right upper lobe have progressed from the 10/20/2024 exam. Pleural spaces: Normal-no effusions or pneumothorax. Bones and soft tissues: Normal IMPRESSION: Large patchy infiltrates in both posterior lower lobes and the post segment of the right upper lobe have progressed from previous study.. Consider infection or aspiration Dictated by: Gil Eagle M.D. on 11/06/2024 at 13:34 Approved by: Gil Eagle M.D. on 11/06/2024 at 13:37
== END ==
PROVIDERS: PCP Family Medicine; Referring Provider Family Medicine; Visit Provider Family Medicine
DX: J18.9 Pneumonia, unspecified organism (principal)
CPT/HCPCS: 71046

== ENCOUNTER → 2024-12-22 11:14 | Outpatient (CLI) | payer MEDICARE, SELFPAY ==
[2024-10-20 21:01] VITALS: BMI 34.3
--- NOTE | 2024-12-22 11:15 | DI.RAD.S_ITS ---
PROCEDURE: XR CHEST 2V INDICATIONS: F/U PNEUMONIA TECHNIQUE: 2 views of the chest were acquired. COMPARISON: [facility], , XR CHEST 2V, 11/05/2024, 16:31. FINDINGS: Surgical changes and devices: None. Lungs and pleura: Persistent but improving patchy bilateral pulmonary infiltrates Mediastinum: Mediastinal contours are normal. Heart size is normal. Bones and chest wall: No suspicious bony abnormalities. Soft tissues appear unremarkable. IMPRESSION: Persistent but improving pneumonia Approved by: Brian Lehman M.D. on 12/22/2024 at 19:57
[2024-12-22 11:55] LABS: Add Manual Diff / Slide Review NO; Basophils Absolute Auto 100 /uL (0-100); Basophils Percent Auto 1.2 % (0-2); Eosinophils Absolute Auto 300 /uL (0-450); Eosinophils Percent Auto 4.5 % (2-4); Hematocrit 36.7 % (36-46); Hemoglobin 11.7 g/dL (12.0-16.0); Lymphocytes Absolute Auto 1100 /uL (1100-4500); Lymphocytes Percent Auto 17.8 % (25-40); Mean Corpuscular HGB Conc 31.9 % (30-36); Mean Corpuscular Hemoglobin 25.6 PG (26-34); Mean Corpuscular Volume 80.3 fL (80-100); Monocytes Absolute Auto 400 /uL (0-900); Monocytes Percent Auto 6.8 % (3-14); Neutrophils Absolute Auto 4300 /uL (1500-7000); Neutrophils Percent Auto 69.7 % (50-75); Platelet Count 389 X10^3/uL (150-400); Red Blood Cell Count 4.57 X10^6/uL (4.0-5.2); Red Cell Distribution Width 18.2 % (11.6-14.8); White Blood Cell Count 6.2 X10^3/uL (4.5-11.0)
[2024-12-22 12:16] LABS: Alanine Aminotransferase 17 IU/L (<35); Albumin 3.9 g/dL (3.5-5.0); Albumin Globulin Ratio 1.3 (1.0-2.8); Alkaline Phosphatase 68 U/L (38-126); Aspartate Aminotransferase 21 IU/L (14-36); BUN Creatinine Ratio 10.4 (6-22); Bilirubin Total 0.7 mg/dL (0.2-1.3); Blood Urea Nitrogen 8 mg/dL (7-17); Calcium 9.5 mg/dL (8.4-10.2); Carbon Dioxide 23 mmol/L (22-32); Chloride 105 mmol/L (98-107); Estimated Glomerular Filt Rate > 60 mL/min (>60); Glucose 95 mg/dL (80-110); HEMOLYSIS < 15 (0-50); Potassium 4.2 mmol/L (3.4-5.1); Sodium 138 mmol/L (137-145); Total Protein 6.9 g/dL (6.3-8.2)
== END ==
PROVIDERS: PCP Family Medicine; Referring Provider Family Medicine; Visit Provider Family Medicine
DX: J18.9 Pneumonia, unspecified organism (principal); I10 Essential (primary) hypertension
CPT/HCPCS: 36415; 71046; 80053; 85025

== ENCOUNTER → 2024-12-24 08:49 | Outpatient (CLI) | payer MEDICARE, SELFPAY ==
[2024-10-20 21:01] VITALS: BMI 34.3
--- NOTE | 2024-12-24 08:50 | DI.CT.S_ITS ---
PROCEDURE: CT CHEST WO CON INDICATIONS: f/u pneumonia TECHNIQUE: Noncontrast 5 mm thick sections acquired from the pulmonary apices to the posterior costophrenic angles. 1 mm lung window, 5 mm thick coronal and sagittal and 7 mm axial MIP reformats were then acquired. For radiation dose reduction, the following was used: automated exposure control, adjustment of mA and/or kV according to patient size. COMPARISON: [facility], CR, XR CHEST 2V, 12/22/2024, 11:18. [facility], CT, CT CHEST W CON, 10/20/2024, 19:21. [facility], CR, XR CHEST 2V, 11/05/2024, 16:31. FINDINGS: Image quality: Diagnostic. Lower Neck: No enlarged lymph nodes. Thyroid: No thyroid nodules which require sonographic follow up, per consensus guidelines. Axillae: No enlarged lymph nodes. Chest Wall: Unremarkable. Bones: Unremarkable. Lungs and Pleura: No pneumothorax. The pneumonia pattern was last evaluated by CT scanning 10/20/24. On follow-up plain film imaging it appears to have worsened and then most recently mildly improved. The current CT shows persistent patchy bilateral relatively dense pneumonia with air bronchograms, an unusual pattern of persistence. No pleural effusion or cavitary progression has developed. Heart: Heart size is normal. No pericardial effusion. Thoracic Vessels: The aorta and pulmonary arteries demonstrate normal size. Mediastinum and Ngozi: No enlarged lymph nodes. Esophagus: No wall thickening. No hiatal hernia. Upper Abdomen: Visualized upper abdomen solid organs and bowel loops appear normal. IMPRESSION: Unusual pattern of persistence of relatively dense bilateral alveolar infiltration with a patchy distribution. No pleural effusion or cavitation within the areas of pneumonia have developed. Atypical pneumonia including fungal and immune mediated pneumonia should be considered. License Examiner consultation is recommended and both bronchoscopic or CT-guided biopsy may become necessary. Dictated by: Ethan Farfan M.D. on 12/24/2024 at 11:33 Approved by: Ethan Farfan M.D. on 12/24/2024 at 11:39
== END ==
PROVIDERS: PCP Family Medicine; Referring Provider Family Medicine; Visit Provider Family Medicine
DX: J18.9 Pneumonia, unspecified organism (principal)
CPT/HCPCS: 71250

== ENCOUNTER → 2024-12-26 08:08 | Outpatient (CLI) | payer MEDICARE, SELFPAY ==
[2024-10-20 21:01] VITALS: BMI 34.3
== END ==
PROVIDERS: PCP Family Medicine; Referring Provider Family Medicine; Visit Provider Family Medicine
DX: J18.9 Pneumonia, unspecified organism (principal)
CPT/HCPCS: 87116; 87206

== ENCOUNTER → 2025-08-02 09:40 | Outpatient (CLI) | payer MEDICARE, SELFPAY ==
[2024-10-20 21:01] VITALS: BMI 34.3
--- NOTE | 2025-08-02 09:43 | DI.CT.S_ITS ---
PROCEDURE: CT CHEST WO CON INDICATIONS: Follow up abnormal chest CT TECHNIQUE: Noncontrast 5 mm thick sections acquired from the pulmonary apices to the posterior costophrenic angles. 1 mm lung window, 5 mm thick coronal and sagittal and 7 mm axial MIP reformats were then acquired. For radiation dose reduction, the following was used: automated exposure control, adjustment of mA and/or kV according to patient size. COMPARISON: [facility], CT, CT CHEST WO CON, 12/24/2024, 8:56. FINDINGS: Image quality: Diagnostic. Lower Neck: No enlarged lymph nodes. Thyroid: No thyroid nodules which require sonographic follow up, per consensus guidelines. Axillae: No enlarged lymph nodes. Chest Wall: Unremarkable. Bones: No suspicious osseous lesion. Lungs and Pleura: No pneumothorax or pleural effusions. Essentially resolved airspace opacities. Minimal opacity at the left lower lobe. Minimal ground-glass opacity at the lung apices. Heart: Heart size is normal. No pericardial effusion. Thoracic Vessels: The aorta and pulmonary arteries demonstrate normal size. Mediastinum and Ngozi: No enlarged lymph nodes. Esophagus: No wall thickening. No hiatal hernia. Upper Abdomen: Visualized upper abdomen solid organs and bowel loops appear normal. IMPRESSION: 1. No mass or significant pulmonary nodules. 2. Essentially resolved airspace opacities. 3. No adenopathy. Dictated by: Hitesh Hollis M.D. on 08/02/2025 at 16:17 Approved by: Hitesh Hollis M.D. on 08/02/2025 at 16:23
[2025-08-04 17:40] LABS: Antimyeloperoxidase Antibodies <0.2 units (0.0-0.9); Antiproteinase 3 Antibodies <0.2 units (0.0-0.9)
[2025-08-05 17:12] LABS: ANA Screen, IFA Negative (.)
== END ==
PROVIDERS: PCP Family Medicine; Referring Provider Student in an Organized Health Care Education/Training Program; Visit Provider Student in an Organized Health Care Education/Training Program
DX: R93.89 Abnormal findings on diagnostic imaging of other specified body structures (principal); R06.02 Shortness of breath
CPT/HCPCS: 36415; 71250; 85651; 86038; 86140; 86256

== ENCOUNTER → 2025-09-03 09:54 | Outpatient (CLI) | payer MEDICARE, SELFPAY ==
[2024-10-20 21:01] VITALS: BMI 34.3
[2025-09-03 11:02] LABS: Add Manual Diff / Slide Review NO; Hematocrit 40.5 % (36-46); Hemoglobin 13.4 g/dL (12.0-16.0); Lymphocytes Absolute Auto 1000 /uL (1100-4500); Mean Corpuscular HGB Conc 33.2 % (30-36); Mean Corpuscular Hemoglobin 28.7 PG (26-34); Mean Corpuscular Volume 86.5 fL (80-100); Platelet Count 243 X10^3/uL (150-400)
[2025-09-03 11:04] LABS: Reticulocyte Count, Percent 1.2 % (1.1-2.6)
[2025-09-03 11:46] LABS: Alanine Aminotransferase 17 IU/L (<35); Albumin 4.4 g/dL (3.5-5.0); Albumin Globulin Ratio 1.6 (1.0-2.8); Alkaline Phosphatase 55 U/L (38-126); Blood Urea Nitrogen 15 mg/dL (7-17); Calcium 9.6 mg/dL (8.4-10.2); Carbon Dioxide 25 mmol/L (22-32); Chloride 106 mmol/L (98-107); Estimated Glomerular Filt Rate > 60 mL/min (>60); Globulin 2.7 g/dL (1.7-4.1); Glucose 100 mg/dL (70-99); HEMOLYSIS < 15 (0-50); Potassium 4.3 mmol/L (3.4-5.1); Sodium 139 mmol/L (137-145); Total Protein 7.1 g/dL (6.3-8.2)
[2025-09-03 11:47] LABS: Iron 111 ug/dL (37-170)
[2025-09-03 12:17] LABS: Ferritin 10 ng/mL (11-264)
[2025-09-03 12:31] LABS: Vitamin B12 342 pg/mL (239-931)
== END ==
LOC: LAB 09:55
PROVIDERS: PCP Family Medicine; Referring Provider Family Medicine; Visit Provider Family Medicine
DX: D64.89 Other specified anemias (principal)
CPT/HCPCS: 36415; 80053; 82607; 82728; 83540; 85025; 85045

== ENCOUNTER → 2025-09-06 11:39 | Outpatient (CLI) | payer MEDICARE, SELFPAY ==
[2024-10-20 21:01] VITALS: BMI 34.3
== END ==
PROVIDERS: PCP Family Medicine; Referring Provider Family Medicine; Visit Provider Family Medicine
DX: D64.89 Other specified anemias (principal)
CPT/HCPCS: 82274